=== PATIENT | female | born 1975 | race Caucasian/White ===

== ENCOUNTER 2018-08-17 09:28 | Emergency (ER) | payer BC ==
[~2018-08-17] VITALS: Ht 160 cm; Wt 88.5 kg
[2018-08-17 09:44] VITALS: BP_SYST 120
--- NOTE | 2018-08-17 09:44 | NUR ---
Patient to ER bed 8 to gown for evaluation. Side rails up. Report given to Eamon KLINE.
--- NOTE | 2018-08-17 09:50 | NUR ---
Pt presents to ED c/o epigastric pain radiating to back since 529 this AM.Pt denies significant med hx.
--- NOTE | 2018-08-17 10:00 | NUR ---
ER at bedside examining patient.
[2018-08-17] MEDS ORDERED: KETOROLAC TROMETHAMINE 60 MG/2 ML VIAL IM ONE (10:30)
[2018-08-17 10:35] LABS: BASOPHILS % (AUTO) 0.5 % (0.0-2.0); EOSINOPHILS % (AUTO) 0.5 % (0.0-4.0); HEMOGLOBIN 12.7 g/dL (12.0-16.0); LYMPHOCYTES # (AUTO) 1.8 K/uL (1.0-5.5); LYMPHOCYTES % (AUTO) 20.2 % (20.5-51.5); MEAN CORPUSCULAR HEMOGLOBIN 30 pg (27-31); MEAN CORPUSCULAR HGB CONC 34 % (32-36); MEAN CORPUSCULAR VOLUME 90 fL (79.0-98.0); MONOCYTES # (AUTO) 0.5 K/uL (0.0-1.0); MONOCYTES % (AUTO) 5.7 % (1.7-9.3); NEUTROPHILS # (AUTO) 6.3 K/uL (1.8-7.7); NEUTROPHILS % (AUTO) 73.1 % (40.0-70.0); PLATELET COUNT (AUTO) 226 K/uL (130-430); RED BLOOD CELL COUNT(AUTO) 4.23 MIL/uL (4.2-6.2); RED CELL DISTRIBUTION WIDTH 13.4 % (9.0-15.0); WHITE BLOOD COUNT (AUTO) 8.7 K/uL (4.8-10.8)
[2018-08-17 10:49] LABS: CALCIUM 8.7 mg/dL (8.4-11.0); CREATININE 0.58 mg/dL (0.55-1.30); POTASSIUM 4.3 mmol/L (3.5-5.1)
--- NOTE | 2018-08-17 10:50 | NUR ---
Pt medicated tolerated well.
[2018-08-17 10:53] LABS: ALBUMIN 3.3 g/dL (3.4-4.8); TOTAL BILIRUBIN 0.4 mg/dL (0.0-1.0)
--- NOTE | 2018-08-17 11:00 | NUR ---
Patient transported to radiology via ambulated, accompanied by rad dept.
--- NOTE | 2018-08-17 11:12 | NUR ---
Returned from radiology, back to [facility].
--- NOTE | 2018-08-17 11:38 | NUR ---
Patient given written and verbal discharge instructions and verbalizes understanding. ER MD discussed with patient the results and treatment provided. Patient in stable condition. ID arm band removed. Rx of Tramadol given. Patient educated on pain management and to follow up with PMD. Pain Scale 2/10 tolerable for patient Opportunity for questions provided and answered. Medication side effect fact sheet provided.
[2018-08-17 11:39] VITALS: BP_SYST 120
== END 2018-08-17 11:38 | disposition home or self-care (01) ==
LOC: SED 09:28
DX: K80.50 Calculus of bile duct without cholangitis or cholecystitis without obstruction (principal)
CPT/HCPCS: 36415; 76700; 80053; 83690; 85025; 96372; 99284; J1885

== ENCOUNTER 2019-05-25 01:47 | Inpatient (IN) | payer BC ==
[~2019-05-25] VITALS: Ht 160 cm; Wt 90.7 kg
[2019-05-25 01:50] VITALS: BP_SYST 139
--- NOTE | 2019-05-25 01:50 | NUR ---
Patient triaged and placed in waiting room. VSS and patient appears in no acute distress at this time. Accompanied by , awaiting available bed, and MD notified of need for MSE.
--- NOTE | 2019-05-25 02:08 | NUR ---
Patient to ER bed 5 to gown for evaluation. Side rails up. Report given to ERNIE KLINE.
--- NOTE | 2019-05-25 02:11 | NUR ---
Pt AAOx4 ambulated into ED c/o 01/21 mid abdominal pain since 0900 this morning. 2 episodes of vomiting prior to arrival. Denies diarrhea. No other injuries/complaints per pt/noted. Will continue to monitor.
--- NOTE | 2019-05-25 02:14 | NUR ---
ER Dr. Bañuelos at bedside examining patient.
[2019-05-25] MEDS ORDERED: NACL 0.9% 1,000 ML IV ONE ×2 (02:19→03:50)
[2019-05-25] MEDS ORDERED: MORPHINE 4 MG/ML INJ. SYRINGE IVP ONE ×2 (02:30→04:00)
[2019-05-25] MEDS ORDERED: ONDANSETRON HCL 4 MG/2 ML VIAL IVP ONE (02:30)
--- NOTE | 2019-05-25 02:48 | NUR ---
Ultrasound at bedside
[2019-05-25 03:11] LABS: CALCIUM 8.5 mg/dL (8.4-11.0); CREATININE 0.64 mg/dL (0.55-1.30); POTASSIUM 3.5 mmol/L (3.5-5.1)
[2019-05-25 03:12] LABS: BASOPHILS % (AUTO) 0.2 % (0.0-2.0); EOSINOPHILS # (AUTO) 0.1 K/uL (0.0-0.4); EOSINOPHILS % (AUTO) 0.7 % (0.0-4.0); HEMATOCRIT 36.7 % (36-48); HEMOGLOBIN 12.1 g/dL (12.0-16.0); LYMPHOCYTES # (AUTO) 1.6 K/uL (1.0-5.5); LYMPHOCYTES % (AUTO) 17.7 % (20.5-51.5); MEAN CORPUSCULAR HEMOGLOBIN 29 pg (27-31); MEAN CORPUSCULAR HGB CONC 33 % (32-36); MEAN CORPUSCULAR VOLUME 87 fL (79.0-98.0); MONOCYTES # (AUTO) 0.6 K/uL (0.0-1.0); NEUTROPHILS % (AUTO) 75.4 % (40.0-70.0); PLATELET COUNT (AUTO) 282 K/uL (130-430); RED BLOOD CELL COUNT(AUTO) 4.24 MIL/uL (4.2-6.2); RED CELL DISTRIBUTION WIDTH 16.4 % (9.0-15.0); WHITE BLOOD COUNT (AUTO) 9.3 K/uL (4.8-10.8)
[2019-05-25 03:15] LABS: PROTHROMBIN TIME 10.4 SECS (9.5-12.5)
[2019-05-25 03:16] LABS: ALBUMIN 3.7 g/dL (3.4-4.8); TOTAL BILIRUBIN 0.2 mg/dL (0.0-1.0)
[2019-05-25] MEDS ORDERED: KETOROLAC TROMETHAMINE 30 MG VIAL IVP ONE (03:30)
[2019-05-25] MEDS ORDERED: metroNIDAZOLE 500 mg/NS 100 ML IV ONE (04:00)
[2019-05-25] MEDS ORDERED: cefTRIAXone 1 GM in D5W 50 ML IV ONE (04:00)
[2019-05-25 04:36] LABS: BILIRUBIN,URINE NEGATIVE (NEGATIVE); BLOOD, URINE NEGATIVE (NEGATIVE); CLARITY/URINE CLEAR (CLEAR); COLOR,URINE YELLOW (YELLOW); GLUCOSE,URINE NEGATIVE (NEGATIVE); KETONES,URINE NEGATIVE (NEGATIVE); LEUKOCYTE ESTERASE ,URINE NEGATIVE (NEGATIVE); NITRITE, URINE NEGATIVE (NEGATIVE); PROTEIN URINE TRACE (NEGATIVE); UROBILINOGEN,URINE 0.2 (0.2-1.0)
[2019-05-25] MEDS ORDERED: cefTRIAXone 1 GM VIAL ONE (04:45)
[2019-05-25] MEDS ORDERED: ONDANSETRON HCL 4 MG/2 ML VIAL IVP PRN (05:15)
[2019-05-25] MEDS ORDERED: MORPHINE 2 MG/ML INJ. SYRINGE IVP PRN (05:15)
[2019-05-25] MEDS ORDERED: MORPHINE 4 MG/ML INJ. SYRINGE IVP PRN (05:15)
--- NOTE | 2019-05-25 05:25 | NUR ---
Uday del cid in [facility] - 05/25/19 at 2118 by [email or web address] Transfer to [facility]. IV present no sign or symptom of infiltration.
--- NOTE | 2019-05-25 05:25 | NUR ---
Note undone in [facility] - 05/25/19 at 2120 by [email or web address] Patient will be admitted to care of . Admitted to M/S unit. Will go to room 116. Belongings list completed. Complete and up to date summary report printed. SBAR report to be given at bedside with opportunity for questions. Addendum: 05/25/19 at 2118 by [email or web address] Amendment undone in [facility] - 05/25/19 at 2119 by [email or web address] Patient will be admitted to care of . Admitted to Tele unit. Will go to room 116. Belongings list completed. Complete and up to date summary report printed. SBAR report to be given at bedside with opportunity for questions.
--- NOTE | 2019-05-25 05:32 | NUR ---
CONSULTATION PAGED/CALLED Reason for Consultation: IMPACTED CHOLELITHIASIS Person Who was Notified: EXCHANGE Consulting Physician: YADI QUINONEZ Neurosurgical Physician Assistant Specialty: Ordering Physician:GERA
[2019-05-25] MEDS ORDERED: D5NS 1,000 ML IV SCH (06:00)
[2019-05-25 08:00] VITALS: BP_SYST 118
[2019-05-25 12:00] VITALS: BP_SYST 115
--- NOTE | 2019-05-25 14:05 | NUR ---
MD BECK PAGESelene LEE AT [phone] SPOKE WITH OLIVA.
[2019-05-25 16:21] VITALS: BP_SYST 168
--- NOTE | 2019-05-25 18:00 | NUR ---
PATIENT SIGNED OUT AMA. PAGED DR QUINONEZ. PENDING CALL BACK TO [facility].
== END 2019-05-25 19:10 | disposition left against medical advice (07) | DRG 446 ==
LOC: SED 01:47 → SMU 05:03
PROVIDERS: ADMIT Internal Medicine Hospice and Palliative Medicine; ATTEND Internal Medicine Hospice and Palliative Medicine
DX: K80.20 Calculus of gallbladder without cholecystitis without obstruction (principal); Z79.899 Other long term (current) drug therapy; Z53.29 Procedure and treatment not carried out because of patient's decision for other reasons
CPT/HCPCS: 36415; 76700-TC; 80053; 81003; 82150-TC; 83605; 83690-TC; 85025; 85610-TC; 87040-TC; 87081; 96361; 96365; 96375; 96376; 99285; J0696; J1885; J2270; J2405; J3490; J7030; J7042

== ENCOUNTER 2022-07-23 19:23 | Emergency (ER) | payer BC ==
[~2022-07-23] VITALS: Ht 160 cm; Wt 88.9 kg
[2022-07-23 19:42] VITALS: BP_SYST 133
--- NOTE | 2022-07-23 19:45 | NUR ---
PT BIB SPOUSE FR HOME C/O 10/10 EPIGASTRIC TO MID ABD 10/10 PAIN THAT RADIATES ACROSS UPPER ABD TO FLANK AREA. VOMITED X 2 TODAY YELLOW GASTRIC CONTENT. DENIES DIARRHEA. NKDA. NO PMH LMP:06/18/2022
--- NOTE | 2022-07-23 20:04 | NUR ---
Patient to ER bed 6 to gown for evaluation. Side rails up. Report given to Bradly KLINE(reg).
--- NOTE | 2022-07-23 20:10 | NUR ---
Received in bed 6 A&OX4, NAD. Pt c/o of 6/10 abdominal pain, epigastric and RUQ. Pt reported vomitted earlier at home.
--- NOTE | 2022-07-23 20:15 | NUR ---
ER Dr. Velasco at bedside examining patient.
[2022-07-23 21:08] LABS: BASOPHILS % (AUTO) 0.4 % (0.0-2.0); EOSINOPHILS % (AUTO) 0.6 % (0.0-4.0); HEMATOCRIT 31.8 % (36-48); HEMOGLOBIN 10.4 g/dL (12.0-16.0); LYMPHOCYTES # (AUTO) 1.6 K/uL (1.0-5.5); MEAN CORPUSCULAR HEMOGLOBIN 26 pg (27-31); MEAN CORPUSCULAR HGB CONC 33 % (32-36); MEAN CORPUSCULAR VOLUME 79 fL (79.0-98.0); MONOCYTES # (AUTO) 0.6 K/uL (0.0-1.0); MONOCYTES % (AUTO) 7.3 % (1.7-9.3); NEUTROPHILS # (AUTO) 6.2 K/uL (1.8-7.7); NEUTROPHILS % (AUTO) 72.7 % (40.0-70.0); PLATELET COUNT (AUTO) 298 K/uL (130-430); RED BLOOD CELL COUNT(AUTO) 4.01 MIL/uL (4.2-6.2); RED CELL DISTRIBUTION WIDTH 16.1 % (9.0-15.0); WHITE BLOOD COUNT (AUTO) 8.5 K/uL (4.8-10.8)
[2022-07-23 21:18] LABS: ALBUMIN 3.7 g/dL (3.4-4.8); CALCIUM 8.3 mg/dL (8.4-11.0); CREATININE 0.75 mg/dL (0.55-1.30); TOTAL BILIRUBIN 0.3 mg/dL (0.0-1.0)
[2022-07-23 21:53] VITALS: BP_SYST 133
== END 2022-07-23 21:53 | disposition home or self-care (01) ==
LOC: SED 19:23
DX: R10.11 Right upper quadrant pain (principal); Z87.19 Personal history of other diseases of the digestive system; Z79.899 Other long term (current) drug therapy
CPT/HCPCS: 36415; 76700-TC; 80053; 81025; 83690; 85025; 99284